=== PATIENT | female | born 1975 | race Caucasian/White ===

== ENCOUNTER → 2022-03-06 14:24 | Outpatient (CLI) | payer BC, SELFPAY ==
--- NOTE | ~2022-03-06 | US_ITS ---
EXAMINATION: US transvaginal DATE: 03/06/2022 14:49 INDICATION: Irregular periods Comparison: TECHNIQUE: Multiple endovaginal sonographic images of the pelvis performed. FINDINGS: The uterus measures 7.3 x 4.9 x 5.2 cm. There is a small uterine fibroid measuring 9 mm. Th e endometrial complex measures 5 mm. The right ovary measures 2.8 x 2.1 x 2.3 cm and the left ovary measures 3.5 x 1.7 x 1.8 cm. There ar e small follicles in each ovary. Normal doppler signal in both ovaries. There is no free fluid in the pelvis. There are no abnormal masses seen on either side. IMPRESSION: 1. Small 9 mm uterine fibroid. Reviewed, dictated and finalized at location A.
== END ==
PROVIDERS: PCP Physician Assistant
DX: N92.6 Irregular menstruation, unspecified (principal); N92.0 Excessive and frequent menstruation with regular cycle; D25.9 Leiomyoma of uterus, unspecified
CPT/HCPCS: 76830

== ENCOUNTER 2024-08-21 08:48 | Outpatient (CLI) | payer SELFPAY ==
--- NOTE | ~2024-08-21 | US_ITS ---
US transvaginal Ordering provider: Nelsy Ochoa, History: . MENORRHAGIA . Comparison: None. Technique: endovaginal ultrasound of the pelvis (Doppler ultrasound interrogation techniques used as needed for this exam.) FINDINGS: CERVIX: Normal. UTERUS: Measures 8.6x 4.7x 5.1 cm in length which is within normal limits and is anteverted. Fibroid s are seen measuring 0.8 x 1 x 0.6 cm and 2.6 x 2.1 x 1.9 cm. ENDOMETRIUM: Normal in thickness measuring 4 mm. No endometrial masses, cysts or fluid. CUL DE SAC: No free fluid. RIGHT OVARY: Normal in size measuring 1.2x 1.8x 1.3 cm. Normal echotexture. Doppler vascular flow pr esent. LEFT OVARY: Not demonstrated. ADNEXA: Normal. No mass. IMPRESSION: Multiple fibroids. Otherwise, normal pelvic ultrasound. Reviewed, dictated and finalized at location A. FREADER
== END 2024-08-21 08:49 | disposition home or self-care (01) ==
PROVIDERS: PCP Obstetrics & Gynecology; Visit Provider Obstetrics & Gynecology Gynecology
DX: D25.9 Leiomyoma of uterus, unspecified (principal)
CPT/HCPCS: 76830

== ENCOUNTER 2024-10-23 10:16 | Outpatient (CLI) | payer BC, SELFPAY ==
--- NOTE | ~2024-10-23 | MM_ITS ---
EXAMINATION: MM screening abdiel BI w kiara HISTORY: Screening TECHNIQUE: Craniocaudal and mediolateral oblique 3-D tomosynthesis images were obtained and synthetic 2-D images were generated. CAD analysis was submitted and interpreted. COMPARISON: 09/25/2018 BREAST PARENCHYMAL COMPOSITION: Not dense: There are scattered areas of fibroglandular density. FINDINGS: There is no evidence of suspicious mass, calcification, or architectural distortion to sugg est malignancy in either breast. There has been no suspicious interval change. IMPRESSION: 1. No mammographic evidence of malignancy. 2. Recommend routine screening mammography in one year. BI-RADS Category 1: Negative Reviewed, dictated and finalized at location B.
== END 2024-10-23 10:17 | disposition home or self-care (01) ==
LOC: MICIMG 10:17
PROVIDERS: PCP Obstetrics & Gynecology; Visit Provider Obstetrics & Gynecology
DX: Z12.31 Encounter for screening mammogram for malignant neoplasm of breast (principal)
CPT/HCPCS: 77063; 77067

== ENCOUNTER 2025-04-29 01:44 | Day surgery (SDC) | payer BC, SELFPAY ==
[2025-04-16 13:46] VITALS: BMI 26.6
[2025-04-29] MEDS: LACTATED RINGERS 1,000 ML 150 ML IV CONT (11:46)
[2025-04-29 11:58] VITALS: BP 150/103; PULSE 80; RESP 18; TEMP 36.3; O2SAT 97; BMI 27.8
--- NOTE | 2025-04-29 12:20 | WPDANESEPPF ---
Anes - Initial Pre Proc Eval Procedure: Operation Date: 04/29/25 12:30 Proposed Procedures p Screening Colonoscopy - Jarrod Weiss MD Date/Time: 04/29/25 12:20 Surgeon: Jarrod Weiss MD Pre Op Diagnosis: Screening Patient Data Age: 49 Gender: F Height: 1.6 m Weight: 71.2 kg Last Vital Signs Temp 36.3 C L 04/29/25 11:58 Pulse 80 04/29/25 11:58 Resp 18 04/29/25 11:58 BP 150/103 H 04/29/25 11:58 Pulse Ox 97 04/29/25 11:58 O2 Del Method Room Air 04/29/25 11:58 Allergies Allergy/AdvReac Type Severity Reaction Status Date / Time Penicillins Allergy Intermediate Rash Verified 04/29/25 11:48 Home Medications ?Medication ?Instructions ?Recorded ?Confirmed ?Type PROGESTERONE 900 mg BYMOUTH QHS 09/15/24 04/16/25 History TESTOSTERONE topical 09/15/24 09/15/24 History THYROID BYMOUTH 09/15/24 09/15/24 History fluoxetine 20 mg capsule 20 mg PO QPM 09/15/24 04/29/25 History Patient hx anesthesia problems: none Family hx anesthesia problems: none Results Review: All pre-operative results and documents have been reviewed as part of the pre-operative evaluation. [facility] Past Medical History Medical History Hyperlipidemia Anxiety Surgical History Surgical History [place] teeth removed Family History Family History Mother Family history of osteoporosis Patient's mother is in good health Family history of elevated blood lipids Family history of genetic disorder Sibling Patient's sister is in good health Father Family history of type 2 diabetes mellitus Social History Social History Smoking status: Never smoker Second hand tobacco smoke exposure: No Alcohol intake: current Alcohol use details: socially Substance use: current Substance use type: marijuana Other substance usage details: gummies occas Do You Feel Safe in your Home?: Yes Lack of Transportation: No Lack of Food: Never True Current Housing: I Have Housing Concerned About Future Housing: No Difficulty Paying Gas/Electric Bills: No Difficulty Paying for Meds: No Currently Unemployed: No Difficulty w/ Childcare or Family Care: No Living arrangements: with family Occupation/Education: occupation Additional occupation/education comments: [employer] Gender identity (if verbalized by the patient): Female Sexual Orientation (if Verbalized by the Patient): Straight or Heterosexual Spiritual care concerns: No Anes - Eval Final PreProcedure Day of Procedure 04/29/25 12:20 Patient weight: overweight Heart: regular rate and rhythm Lungs: clear to auscultation Airway: Mallampati scale class II Neurological: alert and oriented Last oral intake: >/= 8 hours ASA classification: II Emergent: no Anesthetic plan: proceed Anesthesia type and monitoring: general GIVS and standard monitoring Results Review: All pre-operative results and documents have been reviewed as part of the pre-operative evaluation. Informed Consent: The patient's anesthetic plan and its attendant risks and benefits were discussed with the patient/family/POA. Questions were solicited and answers provided to the satisfaction of the patient/family/POA.
[2025-04-29 12:25] LABS: BEDSIDEPREGUCG Negative (Negative)
--- NOTE | 2025-04-29 13:05 | P.HP_ITS ---
History of Present Illness History of Present Illness Consent: Risks, benefits, and alternatives have been discussed and questions answered. Patient agrees to proceed with procedure. Chief complaint: Screening Narrative: Gabby Abebe is a 49 year old female here for first screening colonoscopy Review of Systems Review of Systems: All systems reviewed & are unremarkable except as noted in HPI and below PMFSH Past Medical History Medical History Hyperlipidemia Anxiety Surgical History Surgical History [place] teeth removed Family History Family History Mother Family history of osteoporosis Patient's mother is in good health Family history of elevated blood lipids Family history of genetic disorder Sibling Patient's sister is in good health Father Family history of type 2 diabetes mellitus Social History Social History Smoking status: Never smoker Second hand tobacco smoke exposure: No Alcohol intake: current Alcohol use details: socially Substance use: current Substance use type: marijuana Other substance usage details: gummies occas Do You Feel Safe in your Home?: Yes Lack of Transportation: No Lack of Food: Never True Current Housing: I Have Housing Concerned About Future Housing: No Difficulty Paying Gas/Electric Bills: No Difficulty Paying for Meds: No Currently Unemployed: No Difficulty w/ Childcare or Family Care: No Living arrangements: with family Occupation/Education: occupation Additional occupation/education comments: [employer] Gender identity (if verbalized by the patient): Female Sexual Orientation (if Verbalized by the Patient): Straight or Heterosexual Spiritual care concerns: No Meds Home Medications and Allergies Home Medications ?Medication ?Instructions ?Recorded ?Confirmed ?Type PROGESTERONE 900 mg BYMOUTH QHS 09/15/24 04/16/25 History TESTOSTERONE topical 09/15/24 09/15/24 Hi story THYROID BYMOUTH 09/15/24 09/15/24 Hi story fluoxetine 20 mg capsule 20 mg PO QPM 09/15/24 History Allergies Allergy/AdvReac Type Severity Reaction Status Date / Time Penicillins Allergy Intermediate Rash Verified 04/29/25 11:48 Vital Signs Vital Signs - 24 hr 04/29/25 11:58 Temperature 97.4 F L Pulse Rate 80 Respiratory Rate 18 Blood Pressure 150/103 H Pulse Oximetry 97 Oxygen Delivery Room Air Exam Const: General: comfortable and no acute distress HENMT: Face/Nose/Sinus: Normal nares present Eyes: General: appearance normal, both eyes and all related structures Neck: Neck: no JVD Resp: Auscultation: clear to auscultation bilaterally Cardio: Rate: regular rate Rhythm: regular rhythm GI: Inspection: non-distended GI Palp: Yes Soft to palpation Skin: General skin exam: normal color Neuro: Speech: normal speech Extrem: General: normal to inspection Psych: Mental Status: mental status grossly normal Assessment and Plan Assessment and plan (1) Colon cancer screening: Code(s): Z12.11 - Encounter for screening for malignant neoplasm of colon Status: Acute Assessment and Plan: colonoscopy
--- NOTE | 2025-04-29 13:22 | S_PTH ---
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
[2025-04-29 13:26] VITALS: BP 122/77; PULSE 77; RESP 19; O2SAT 95
[2025-04-29 13:36] VITALS: BP 140/89; PULSE 66; RESP 19; O2SAT 100
[2025-04-29 13:46] VITALS: BP 148/86; PULSE 67; RESP 15; O2SAT 100
== END 2025-04-29 13:57 | disposition home or self-care (01) ==
PROVIDERS: Anesthesiology; Referring Provider Obstetrics & Gynecology; Visit Provider Internal Medicine Gastroenterology
PROC: 0DJD8ZZ Inspection of Lower Intestinal Tract, Via Natural or Artificial Opening Endoscopic (ICD-10-PCS; CPT 45378; principal; 2025-04-29 12:30)
DX: Z12.11 Encounter for screening for malignant neoplasm of colon (principal); K63.5 Polyp of colon; K64.8 Other hemorrhoids; E78.5 Hyperlipidemia, unspecified; F41.9 Anxiety disorder, unspecified; Z98.890 Other specified postprocedural states; F12.90 Cannabis use, unspecified, uncomplicated
CPT/HCPCS: 45385; 88305; J2003; J2704; J7120